=== PATIENT | female | born 1930 | race Caucasian/White ===

== ENCOUNTER 2019-02-08 11:12 | Emergency (ER) | payer MEDICARE, BC ==
[~2019-02-08] VITALS: Ht 162.6 cm; Wt 104.3 kg
[~2019-02-08 11:12] MED LIST: ADVAIR HFA115 MCG/21 INH; AMIODARONE HCL100 MG PO; APAP500 PO; ASPIRIN325 PO; ASPIRIN81 M2 PO; ATIVAN1 MG PO; ATORVASTATIN CA10 MG PO; DOXYCYCLINE 10100 M1 PO; DUONEB 2.5-0.5 M3 ML PO; ELMIRON 100 MG100 M1 PO; FENOFIBRATE160 MG PO; GABAPENTIN100 MG PO; HYDROCHLOROTHIA25 M2 PO; KEFLEX500 MG PO; LASIX 20 MG TAB20 MG PO; LEVOTHROID112 MCG PO; LEVOTHYROXIN0.112 M1 PO; LEVOTHYROXINE0.2 M1 PO; LIPITOR10 MG PO; MEGESTROL40 MG/1 M1 GT; NITROGLYCERIN0.4 MG PO; NORVASC5 MG PO; OMEPRAZOLE 20 M20 MG PO; PACERONE 200 M200 M1 PO; PREDNISONE 10 M10 MG PO; PREDNISONE50 MG PO; PULMICORT0.5 MG/22 INH; SINGULAIR 10 MG10 M1 PO; TOPROL XL25 MG PO; URELLE PO; URELLE TABLET1 TAB PO; VENTOLIN HFA 1818 GM INH; ZANTAC 150MG T150 MG PO
[2019-02-08] MEDS ORDERED: LASIX 20 MG TAB20 MG PO (11:34)
[2019-02-08] MEDS ORDERED: AZELASTINE137 MCG/0. NASAL (11:35)
[2019-02-08] MEDS ORDERED: PACERONE 200 M200 M1 PO (11:35)
[2019-02-08] MEDS ORDERED: HYDRALAZINE 2525 MG PO (11:35)
[2019-02-08] MEDS ORDERED: LINZESS290 MCG PO (11:35)
[2019-02-08] MEDS ORDERED: XARELTO15 MG PO (11:36)
[2019-02-08 12:40] VITALS: BP 122/50
== END 2019-02-08 12:41 | disposition home or self-care (01) ==
LOC: M.ERS 11:12
DX: S81.812A Laceration without foreign body, left lower leg, initial encounter (principal); I10 Essential (primary) hypertension; E11.9 Type 2 diabetes mellitus without complications; I48.91 Unspecified atrial fibrillation; J44.9 Chronic obstructive pulmonary disease, unspecified; Z85.41 Personal history of malignant neoplasm of cervix uteri; Z90.49 Acquired absence of other specified parts of digestive tract; Z90.710 Acquired absence of both cervix and uterus; Z88.2 Allergy status to sulfonamides; Z88.6 Allergy status to analgesic agent; X58.XXXA Exposure to other specified factors, initial encounter; Y93.89 Activity, other specified; Y92.89 Other specified places as the place of occurrence of the external cause; Y99.8 Other external cause status

== ENCOUNTER → 2019-02-24 | Outpatient (CLI) | payer MEDICARE, BC ==
[~2019-02-24] MED LIST changes: +ADVAIR HFA 230M12 GM INH; +AZELASTINE137 MCG/0. NASAL; +HYDRALAZINE 2525 MG PO; +LINZESS290 MCG PO; +XARELTO15 MG PO
[2019-02-24 11:25] VITALS: BP 135/52
--- NOTE | 2019-02-24 13:27 | NUR ---
Pt arrived at 1055 via w/c with husbands assistance. Pt ambulated to recliner. Pt had orders from Dr office different then the orders faxed to us. Called 's office and spoke with Nancy Narvaez's nurse Amanda and she clarified the 2 sets of orders. One is for iron infusions x3 and the other was for after infusion is completed for labs and epo shot. Explained this to patient and pt does have follow up apt with us on 03/10/19. IV started at 1132 in right forarm. Pt has limb alert for left side d/t lymph node removal. Infusion started at 1125 and completed at 1320. Pt tolerated well. Did have box lunch and wheeled to bathroom x3 during treatment. IV removed at 1322 and pressure held d/t pt being on blood thinner. Pt was wheeled out at 1327 for home with .
== END ==
LOC: M.INFUS 10:41
DX: D50.9 Iron deficiency anemia, unspecified (principal); N18.9 Chronic kidney disease, unspecified; D63.1 Anemia in chronic kidney disease

== ENCOUNTER → 2019-02-27 | Outpatient (CLI) | payer MEDICARE, BC ==
[2019-02-27 10:35] VITALS: BP 110/60
[2019-02-27 12:15] VITALS: BP 120/48
== END ==
LOC: M.INFUS 04:30
DX: D50.9 Iron deficiency anemia, unspecified (principal); N18.9 Chronic kidney disease, unspecified; D63.1 Anemia in chronic kidney disease

== ENCOUNTER 2019-11-10 16:50 | Inpatient (IN) | payer MEDICARE, BC ==
[~2019-11-10] VITALS: Ht 162.6 cm; Wt 105.2 kg
[2019-11-10 16:57] VITALS: BP 135/51
[2019-11-10 18:13] LABS: APTT 26.3 Seconds (25.0-31.3); INR 1.1; PROTIME 11.2 Seconds (9.20-11.50)
[2019-11-10 19:09] LABS: HEMATOCRIT 26.9 % (37.0-47.0); MCH 31.2 pg (26.0-34.0); MCHC 33.3 g/dL (28.0-37.0); MCV 93.6 fL (80.0-100.0); MPV 8.4 fl. (7.2-11.1); NUCLEATED RBCS 0 /100WBC; PLATELET COUNT* 211 thou/uL (150-400); RBC 2.88 mil/uL (4.20-5.00); RDW-CV 15.3 % (10.5-14.5); WBC 9.2 thou/uL (4.0-11.0)
[2019-11-10 19:12] LABS: CALCIUM 8.9 mg/dL (8.5-10.1); CREATININE 1.7 mg/dL (0.6-1.3); POTASSIUM 4.4 mmol/L (3.5-5.1)
[2019-11-10 19:26] LABS: ABSOLUTE LYMPHOCYTES 2.1 thou/uL (0.8-5.3); ABSOLUTE MONOCYTES 0.5 thou/uL (0.0-1.2); ABSOLUTE NEUTROPHILS 4.6 thou/uL (1.6-8.1); PLATELET ESTIMATE ADEQUATE
[2019-11-10 19:27] LABS: ALBUMIN 3.3 g/dL (3.4-5.0); TOTAL BILIRUBIN 0.4 mg/dL (<0.1-1.0); TOTAL PROTEIN 7.4 g/dL (6.4-8.2)
[2019-11-10 21:14] VITALS: BP 157/72
[2019-11-10 21:15] VITALS: BP 130/44
[2019-11-10 22:34] VITALS: BP 123/48
[2019-11-11] VITALS (7 sets, daily range): BP systolic 112–150; BP diastolic 45–65
--- NOTE | 2019-11-11 06:53 | NUR ---
TELE OVERFLOW FROM ED. ADMISSION AND ORDERS DONE. RN ESTABLISHED CARE FROM HIREN JOHNS AT 0000. CONSULT TO ORTHO SURGERY. PT HAS DNI STATUS WAITING PHYSICIAN CHANGE. CONTINUE TO MONITOR
--- NOTE | 2019-11-11 10:15 | NUR ---
INT ROUNDS: MET WITH PT, SHE LIVES WITH SPOUSE. BOTH ARE FAIRLY INDEPENDENT. SHARE HOUSEHOLD DUTIES. PT IS INDEPENDENT WITH ADLS. USES BATH BENCH, WALKER AND O2 AT NOC/2L. PT'S SON AND DTR ARE DPOA. PT HASN'T HAD HH AND NOT INTERESTED IN IT AT THIS TIME. PLANS TO RETURN HOME AT OR. WAS MOST INTERESTED IN FINDING A TV SHOW ON HER TV. WILL FOLLOW
--- NOTE | 2019-11-11 15:27 | 2DMMODE ---
[place] [address] 2 D/M-MODE ECHOCARDIOGRAM Name: ADIS EMMANUEL I Room: [address] IN [facility]#: [id number] Admission: 11/10/19 Attend Phys: Best Gilmore, Discharge: Date of : 34 Date of Service: 11/11/19 1526 Report #: [id number] THIS REPORT FOR: //name// APPROVED REPORT Study performed: 11/11/2019 10:43:01 EXAM: Comprehensive 2D, Doppler, and color-flow Echocardiogram Patient Location: In-Patient Room #: [facility] Status: routine BSA: 2.05 HR: 68 bpm BP: 135/50 mmHg Rhythm: NSR Other Information Study Quality: Good Indications Dyspnea 2D Dimensions IVSd: 14.90 (7-11mm) LVOT Diam: 21.26 (18-24mm) LVDd: 55.14 mm PWd: 13.27 (7-11mm) Ascending Ao: 32.50 (22-36mm) LVDs: 34.49 (25-40mm) Aortic Root: 31.87 mm Volumes Left Atrial Volume (Systole) LA ESV Index: 39.60 mL/m2 Aortic Valve AoV Peak Ángel.: 2.70 m/s AO Peak Gr.: 29.05 mmHg LVOT Max P.36 mmHg AO Mean Gr.: 18.19 mmHg LVOT Mean P.84 mmHg LVOT Max V: 0.92 m/s AO V2 VTI: 61.15 cm LVOT Mean V: 0.64 m/s JIMBO (VTI): 1.25 cm2 LVOT V1 VTI: 21.57 cm Mitral Valve MV Decel. Time: 193.99 ms MV PHT: 56.26 ms MVA (PHT): 3.91 [place]2 [place] [address] 2 D/M-MODE ECHOCARDIOGRAM Name: ADIS EMMANUEL I Room: [address] IN [facility]#: [id number] Admission: 11/10/19 Attend Phys: Best Gilmore, Discharge: Date of : 34 Date of Service: 11/11/19 1526 Report #: [id number] TDI Medial E' Ángel.: 0.09 m/s Lateral E' Ángel.: 0.11 m/s Pulmonary Valve PV Peak Ángel.: 1.01 m/s PV Peak Gr.: 4.12 mmHg Tricuspid Valve RAP Estimate: 5.00 mmHg TR Peak Gr.: 45.85 mmHg RVSP: 50.00 mmHg PA Pressure: 50.00 mmHg Left Ventricle The left ventricle is normal size. There is normal LV segmental wall motion. Mild concentric left ventricular hypertrophy. Left ventricular systolic function is normal. LVEF is 55-60%. This study is not technically sufficient to allow evaluation of the LV diastolic function due to atrial fibrillation. Right Ventricle The right ventricle is normal size. The right ventricular systolic function is normal. Atria Left atrium is mildly dilated. The right atrium size is normal. Aortic Valve Moderate aortic valve sclerosis. No aortic regurgitation is present. Moderate aortic stenosis. Mitral Valve The mitral valve is normal in structure. Trace mitral regurgitation. No evidence of mitral valve stenosis. Tricuspid Valve The tricuspid valve is normal in structure. Trace tricuspid regurgitation. Moderate pulmonary hypertension. The RVSP is 50-55 mmHg. Pulmonic Valve The pulmonary valve is normal in structure. There is no pulmonic valvular regurgitation[place] [address] 2 D/M-MODE ECHOCARDIOGRAM Name: HUMPHREYDANIEL THOMPSONJAKE Dill Room: [address]#: [id number] Admission: 11/10/19 Attend Phys: Best Gilmore, Discharge: Date of : 34 Date of Service: 11/11/19 1526 Report #: [id number] The aortic root is normal in size. IVC is normal in size and collapses >50% with inspiration. Pericardium There is no pericardial effusion. <Conclusion> The left ventricle is normal size. Mild concentric left ventricular hypertrophy. Left ventricular systolic function is normal. LVEF is 55-60%. Left atrium is mildly dilated. Moderate aortic valve sclerosis. Moderate aortic stenosis. Trace mitral regurgitation. Trace tricuspid regurgitation. Moderate pulmonary hypertension. The RVSP is 50-55 mmHg. IVC is normal in size and collapses >50% with inspiration. <ELECTRONICALLY SIGNED> By: Gonzalez Jarvis MD, FACC 11/11/19 1526 1526 1526 Gonzalez Jarvis MD, FACC /INF
--- NOTE | 2019-11-11 16:06 | EKG ---
[place] [address] ELECTROCARDIOGRAM REPORT Name: ADIS EMMANUEL I Room: [address] ADM IN M.R.#: [id number] Admission: 11/10/19 Attend Phys: Best Gilmore MD Discharge: Date of : 34 Report #: [id number] THIS REPORT FOR: //name// [facility] ED Test Date: 2019-11-10 Test Time: 16:53:03 Pat Name: ADIS EMMANUEL Department: Room: [facility] Gender: F Revenue Stamp Clerk: MS : 1930 Requested By: Inez Wahl Order Number: [id number] MD: Mitch Gray Measurements Intervals [place] Rate: 75 P: MA: QRS: -29 QRSD: 129 T: 143 QT: 427 QTc: 477 Interpretive Statements Atrial fibrillation LVH with IVCD and secondary repol abnrm Borderline prolonged QT interval Baseline wander in lead(s) II,III,aVF Compared to ECG 06/29/2016 08:32:03 Intraventricular conduction delay persists Left ventricular hypertrophy now present Early repolarization now present Sinus rhythm no longer present First degree AV block no longer present Left bundle-branch block no longer present Electronically Signed On 11-11-2019 16:05:47 INFORMATION TECHNOLOGY ASSISTANT by Mitch Gray [email or web address] <ELECTRONICALLY SIGNED> By: Mitch Gray MD, [facility] 11/11/19 1605 52 165 Mitch Gray MD, [facility] /EPI
--- NOTE | 2019-11-11 17:41 | NUR ---
PATIENT PROGRESSING WELL TOWARDS GOALS THIS SHIFT. CONTINUES TO USE COMMODE FREQUENTLY DUE TO LASIX ADMINISTRATION. VITALS REMAIN WITHIN NORMAL LIMITS. GREAT APPETITE, NO PAIN, NAUSEA OR SHORTNESS OF AIR. STILL CONTINUES TO APPEAR LABORED WITH EXERTION BUT SATS REMAIN ABOVE 90%. BED IN LOWEST POSITION, CALL LIGHT IN REACH. CARDIAC MONTIOR IN PLACE.
[2019-11-12] VITALS: BP 123/51
[2019-11-12 03:05] LABS: CALCIUM 8.7 mg/dL (8.5-10.1); CREATININE 1.7 mg/dL (0.6-1.3); POTASSIUM 4.4 mmol/L (3.5-5.1)
[2019-11-12 04:50] VITALS: BP 160/49
--- NOTE | 2019-11-12 05:34 | NUR ---
PT. PROGRESSING TOWARDS GOALS. UP TO COMMODE STAND BY ASSIST THROUGHOUT SHIFT. 3.5L O2 ON WHILE SLEEPING. REMAINS AFIB, HEART RATE CONTROLLED. PT. HYPERTENSIVE ON LAST BP CHECK, HYDRALIZINE GIVEN. PT. WILL POSSIBLY DISCHARGE TO HOME TODAY. 700 CC FLUID INTAKE THIS SHIFT. PT. SLEPT WELL THROUGHOUT SHIFT. CALL LIGHT IN REACH, WILL CONTINUE TO MONITOR.
[2019-11-12 07:50] VITALS: BP 109/54
[2019-11-12 07:52] VITALS: BP 117/45
[2019-11-12 10:38] VITALS: BP 113/51
[2019-11-12 11:31] VITALS: BP 113/51
== END 2019-11-12 12:00 | disposition home or self-care (01) | DRG 562 ==
LOC: M.ERS 16:50 → M.ICU 19:47 → M.TBA-ER 19:47 → M.ICU 20:40
PROVIDERS: Family Medicine; Nurse Practitioner Family; ADMIT Internal Medicine
PROC: 2W3BX1Z Immobilization of Left Upper Arm using Splint (ICD-10-PCS; principal; 2019-11-10)
DX: S43.032A Inferior subluxation of left humerus, initial encounter (principal); I50.33 Acute on chronic diastolic (congestive) heart failure; I13.0 Hypertensive heart and chronic kidney disease with heart failure and stage 1 through stage 4 chronic kidney disease, or unspecified chronic kidney disease; D68.59 Other primary thrombophilia; I48.20 Chronic atrial fibrillation, unspecified; N18.3 Chronic kidney disease, stage 3 (moderate); I25.10 Atherosclerotic heart disease of native coronary artery without angina pectoris; I25.2 Old myocardial infarction; J44.9 Chronic obstructive pulmonary disease, unspecified; E11.22 Type 2 diabetes mellitus with diabetic chronic kidney disease; I27.20 Pulmonary hypertension, unspecified; E78.5 Hyperlipidemia, unspecified; E03.9 Hypothyroidism, unspecified; K58.9 Irritable bowel syndrome, unspecified; F32.9 Major depressive disorder, single episode, unspecified; F41.9 Anxiety disorder, unspecified; M25.812 Other specified joint disorders, left shoulder; M19.012 Primary osteoarthritis, left shoulder; E11.40 Type 2 diabetes mellitus with diabetic neuropathy, unspecified; Z98.61 Coronary angioplasty status; Z88.6 Allergy status to analgesic agent; Z88.1 Allergy status to other antibiotic agents; Z85.41 Personal history of malignant neoplasm of cervix uteri; Z90.710 Acquired absence of both cervix and uterus; Z85.820 Personal history of malignant melanoma of skin; Z82.49 Family history of ischemic heart disease and other diseases of the circulatory system; Z87.891 Personal history of nicotine dependence; Z99.81 Dependence on supplemental oxygen; Z79.899 Other long term (current) drug therapy; X58.XXXA Exposure to other specified factors, initial encounter; Y93.89 Activity, other specified; Y92.89 Other specified places as the place of occurrence of the external cause; Y99.8 Other external cause status

== ENCOUNTER 2020-05-11 15:03 | Inpatient (IN) | payer MEDICARE, BC ==
[~2020-05-11] VITALS: Ht 152.4 cm; Wt 99.3 kg
[2020-05-11 15:13] VITALS: BP 133/58
[2020-05-11 15:42] LABS: HEMATOCRIT 23.4 % (37.0-47.0); HEMOGLOBIN 7.9 gm/dL (12.0-15.0); MCH 30.3 pg (26.0-34.0); MCHC 33.8 g/dL (28.0-37.0); MCV 89.6 fL (80.0-100.0); MPV 7.7 fl. (7.2-11.1); NUCLEATED RBCS 0 /100WBC; PLATELET COUNT* 230 thou/uL (150-400); RBC 2.61 mil/uL (4.20-5.00); RDW-CV 16.5 % (10.5-14.5); WBC 9.4 thou/uL (4.0-11.0)
[2020-05-11 15:49] LABS: BE 1.6 mmol/L (-2 to +3); PCO2 42.7 mmHg (35.0-45.0); pH 7.409 (7.340-7.450)
[2020-05-11 15:51] LABS: PO2 141.1 mmHg (75.0-100.0)
[2020-05-11 15:52] LABS: INR 1.1; PROTIME 11.6 Seconds (9.20-11.50)
[2020-05-11 15:53] LABS: CALCIUM 8.2 mg/dL (8.5-10.1); CREATININE 2.1 mg/dL (0.6-1.3); POTASSIUM 4.3 mmol/L (3.5-5.1)
[2020-05-11 16:04] LABS: TOTAL BILIRUBIN 0.4 mg/dL (<0.1-1.0); TOTAL PROTEIN 7.5 g/dL (6.4-8.2)
[2020-05-11 16:09] LABS: ABSOLUTE EOSINOPHILS 2.2 thou/uL (0.0-0.7); ABSOLUTE LYMPHOCYTES 1.9 thou/uL (0.8-5.3); ABSOLUTE MONOCYTES 0.8 thou/uL (0.0-1.2); ABSOLUTE NEUTROPHILS 4.6 thou/uL (1.6-8.1); ANISOCYTOSIS 1+; PLATELET ESTIMATE ADEQUATE
[2020-05-11 21:14] VITALS: BP 130/74
[2020-05-12] VITALS: BP 126/46
[2020-05-12] MEDS ORDERED: LIPITOR 20 MG T20 M1 PO (02:02)
[2020-05-12] MEDS ORDERED: METOPROLOL SUCC25 M1 PO (02:06)
[2020-05-12] MEDS ORDERED: TOPROL XL25 MG PO (02:16)
[2020-05-12 04:00] VITALS: BP 127/42
[2020-05-12 08:00] VITALS: BP 145/62
--- NOTE | 2020-05-12 09:07 | EKG ---
[place] [address] ELECTROCARDIOGRAM REPORT Name: ADIS EMMANUEL I Room: [address] ADM IN M.R.#: [id number] Admission: 05/11/20 Attend Phys: Betty funez Sa Discharge: Date of : 34 Date of Service: 05/11/20 1540 Report #: [id number] THIS REPORT FOR: //name// [facility] ED Test Date: 2020-05-11 Test Time: 15:40:41 Pat Name: ADIS EMMANUEL Department: Room: [facility] Gender: F Communications Maintainer: TARA : 1930 Requested By: Cooper Peterson Order Number: [id number] MD: Mc Savage Measurements Intervals [place] Rate: 71 P: [place]: QRS: -43 QRSD: 136 T: 113 QT: 495 QTc: 538 Interpretive Statements Atrial fibrillation Ventricular premature complex nonspecific intraventricular conduction defect Baseline wander in lead(s) V2 Compared to ECG 11/10/2019 16:53:03 Ventricular premature complex(es) now present Left ventricular hypertrophy no longer present Electronically Signed On 05-12-2020 9:06:45 CDT by Mc Savage [email or web address] <ELECTRONICALLY SIGNED> By: Mc Savage MD, FAC 05/12/20 0906 1540 1540 Mc Savage MD, [facility] /EPI
[2020-05-12 12:31] VITALS: BP 105/75
[2020-05-12 14:07] LABS: % SATURATION 14 % (20-39); IRON 38 ug/dL (50-175)
[2020-05-12 19:30] VITALS: BP 93/54
[2020-05-13] VITALS: BP 126/46
[2020-05-13 04:45] LABS: HEMATOCRIT 22.7 % (37.0-47.0); HEMOGLOBIN 7.6 gm/dL (12.0-15.0)
[2020-05-13 04:53] LABS: CALCIUM 8.5 mg/dL (8.5-10.1); CREATININE 1.8 mg/dL (0.6-1.3); POTASSIUM 3.9 mmol/L (3.5-5.1)
[2020-05-13 08:00] VITALS: BP 119/36
[2020-05-13 12:00] VITALS: BP 106/46
--- NOTE | 2020-05-13 14:31 | NUR ---
PT IS SLIGHTLY AGITATED FROM O/N EVENTS. PT REASSURED THAT THIS WAS NOT NORMAL BEHAVIOR. PT BP HAS BEEN DECREASED T/O SHIFT,METOPROLOL AND HYDRALAZINE HELD. PT HAS REPORTED SOME DIZZINESS WITH POSITIONAL CHANGE. PT HAS APPEARED VERY SOA,LABORED BREATHING. PT DOES STATE THAT THEY WILL CALL FOR ASSIST IF THEY FEEL THEY NEED HELP. PT DID REFUSE, IRON,LASIX AND PHYSICAL THERAPY. WCTM CLOSELY.
[2020-05-13] MEDS ORDERED: AZITHROMYCIN 2250 MG PO (15:19)
[2020-05-13] MEDS ORDERED: SLOW FE142 MG PO (15:20)
--- NOTE | 2020-05-13 16:58 | CON ---
[address] [address] CONSULTATION Name: ADIS EMMANUEL I Room: [address] IN M.R.#: [id number] Admission: 05/11/20 Attend Phys: Betty Mcduffie Discharge: Date of : 34 Report #: [id number] THIS REPORT FOR: //name// cc: Kenia Alarcon Maggie M. DO THIS REPORT FOR: //name// CC: Betty Chairez DO DATE OF SERVICE: 05/12/2020 CARDIOLOGY CONSULTATION HISTORY OF PRESENT ILLNESS: The patient is an 89-year-old white female who I was asked to see in the hospital today because of shortness of breath. The patient has an extensive past medical history. She has had multiple hospitalizations here at [place]. She actually saw Dr. Villalobos back in 2007 with shortness of breath and was found to be in atrial flutter. She was placed on sotalol. She has been anticoagulated with warfarin in the past. She converted to sinus rhythm. The patient had previous balloon angioplasty at [facility] almost 30 years ago. She has been on the sotalol for years. She had recurrent atrial fibrillation and converted to sinus rhythm in 2008. Her last hospitalization here at [place] is 10/2019 with shortness of breath, found to be secondary to COPD. The patient is not very active because of her large size. She is 5 feet 4 inches and weighs 220 pounds. She uses a walker. She came to the Emergency Room yesterday, complaining of being short of breath and coughing. She denied any edema, chest tightness, palpitation, syncope. No one at home had pneumonia. She is admitted for further evaluation and treatment. PAST MEDICAL HISTORY: She has had hysterectomy for uterine cancer. She has a history of hypertension. There is no history of diabetes. CURRENT MEDICATIONS: Consist of Lasix, hydralazine, Lipitor, Synthroid, Xarelto, Pulmicort, and metoprolol. ALLERGIES: SHE HAS AN ALLERGY TO MORPHINE. FAMILY HISTORY: Positive for heart disease. SOCIAL HISTORY: She is . She and her live in [place]. Quit smoking years ago. No alcohol abuse. REVIEW OF SYSTEMS: She has had no history of stroke. [place] [address] CONSULTATION Name: ADIS EMMANUEL I Room: [address]#: [id number] Admission: 05/11/20 Attend Phys: Betty Mcduffie Discharge: Date of : 34 Report #: [id number] history of liver disease, kidney disease. 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 No psychiatric illness. No chronic skin condition. PHYSICAL EXAMINATION: GENERAL: Reveals obese elderly female, lying in bed. She appeared in no distress. VITAL SIGNS: She had a blood pressure of 140/60, pulse is 80, she is afebrile. HEENT: She is anicteric. Conjunctivae pink. Mucous membranes moist. NECK: Veins difficult to assess due to obesity. No carotid bruits. CHEST: Revealed crackles in both lung unger. CARDIOVASCULAR: Regular rate and rhythm, grade 3 systolic ejection murmur. ABDOMEN: Obese. EXTREMITIES: Had no pitting edema. Posterior tibial pulse 1+. SKIN: Cool and dry. NEUROLOGIC: Nonfocal. DIAGNOSTIC DATA: Her ECG on admission showed sinus rhythm, first-degree AV block, frequent PVCs, left axis deviation. Her last echocardiogram was done in 10/2019 that showed ejection fraction 60%, left ventricular hypertrophy, evidence of moderate aortic stenosis with a peak gradient across the aortic valve of 30 mmHg. She was noted to have moderate pulmonary hypertension. Her chest x-ray in the Emergency Room yesterday showed chronic interstitial lung findings. LABORATORY WORK: Yesterday, sodium 139, BUN 47, creatinine 2.1. Her liver function studies were normal. BNP 6186. Her white blood cell count 9.4, hemoglobin 7.9. IMPRESSION AND RECOMMENDATIONS: 1. Shortness of breath. Suspect secondary to anemia. The patient does have chronic obstructive pulmonary disease. 2. Mild aortic stenosis. 3. History of atrial fibrillation. If the patient remains in sinus rhythm, I would consider discontinuing Xarelto because of her severe anemia. 4. Hypertension. The patient is on a beta-haroon and hydralazine. 5. History of melanoma. 6. Bronchitis. 7. Obesity. 8. Chronic obstructive pulmonary disease. <ELECTRONICALLY SIGNED> By: Mc Savage MD, [facility] 05/13/20 1658 1226 1531David Milton Savage MD, FACC /nt
--- NOTE | 2020-05-13 16:59 | NUR ---
PT.TO DISCHARGE TODAY. SHE LIVES WITH . HAS HOME O2,WALKER,BATH BENCH. PT.HAS NO HX OF HH OR SNF AND DOES NOT WANT HH AT THIS TIME. IS INDEPENDENT AT HOME AND HELPS HER NEEDED.
[2020-05-13] MEDS ORDERED: AZITHROMYCIN500 MG PO (17:49)
== END 2020-05-13 17:31 | disposition home or self-care (01) | DRG 291 ==
LOC: M.ERS 15:03 → M.2W 17:11 → M.TBA-ER 17:11 → M.2W 21:23
PROVIDERS: Emergency Medicine; Internal Medicine Cardiovascular Disease; ADMIT Family Medicine; ATTEND Family Medicine
DX: I13.0 Hypertensive heart and chronic kidney disease with heart failure and stage 1 through stage 4 chronic kidney disease, or unspecified chronic kidney disease (principal); I50.33 Acute on chronic diastolic (congestive) heart failure; J15.9 Unspecified bacterial pneumonia; J44.0 Chronic obstructive pulmonary disease with (acute) lower respiratory infection; N17.9 Acute kidney failure, unspecified; I48.20 Chronic atrial fibrillation, unspecified; D68.59 Other primary thrombophilia; Z68.41 Body mass index [BMI] 40.0-44.9, adult; N18.3 Chronic kidney disease, stage 3 (moderate); G62.9 Polyneuropathy, unspecified; I35.0 Nonrheumatic aortic (valve) stenosis; E66.9 Obesity, unspecified; F32.9 Major depressive disorder, single episode, unspecified; F41.9 Anxiety disorder, unspecified; E03.9 Hypothyroidism, unspecified; I27.20 Pulmonary hypertension, unspecified; D50.9 Iron deficiency anemia, unspecified; Z20.828 Contact with and (suspected) exposure to other viral communicable diseases; K58.9 Irritable bowel syndrome, unspecified; Z85.41 Personal history of malignant neoplasm of cervix uteri; I25.2 Old myocardial infarction; Z88.6 Allergy status to analgesic agent; Z88.2 Allergy status to sulfonamides; Z85.42 Personal history of malignant neoplasm of other parts of uterus; Z82.49 Family history of ischemic heart disease and other diseases of the circulatory system; Z87.891 Personal history of nicotine dependence; Z99.81 Dependence on supplemental oxygen

== ENCOUNTER → 2020-12-02 | Outpatient (CLI) | payer MEDICARE, BC ==
[~2020-12-02] MED LIST changes: +AZITHROMYCIN 2250 MG PO; +AZITHROMYCIN500 MG PO; +LIPITOR 20 MG T20 M1 PO; +METOPROLOL SUCC25 M1 PO; +SLOW FE142 MG PO
== END ==
LOC: M.RAD 10:57
PROVIDERS: ATTEND Family Medicine
DX: N64.89 Other specified disorders of breast (principal)

== ENCOUNTER 2021-01-06 14:16 | Inpatient (IN) | payer MEDICARE, BC ==
[~2021-01-06] VITALS: Ht 162.6 cm; Wt 106.2 kg
[2021-01-06 14:23] VITALS: BP 143/61
[2021-01-06 14:54] LABS: HEMATOCRIT 23.7 % (37.0-47.0); HEMOGLOBIN 7.7 gm/dL (12.0-15.0); MCH 30.1 pg (26.0-34.0); MCHC 32.4 g/dL (28.0-37.0); MPV 7.6 fl. (7.2-11.1); NUCLEATED RBCS 0 /100WBC; PLATELET COUNT* 237 thou/uL (150-400); RBC 2.55 mil/uL (4.20-5.00); RDW-CV 15.4 % (10.5-14.5)
[2021-01-06 15:07] LABS: APTT 25.4 Seconds (25.0-31.3); INR 1.1; PROTIME 11.2 Seconds (9.20-11.50)
[2021-01-06 15:34] LABS: URINE BILIRUBIN NEGATIVE (Negative); URINE BLOOD NEGATIVE (Negative); URINE COLOR YELLOW; URINE GLUCOSE-RANDOM NEGATIVE (Negative); URINE KETONES NEGATIVE (Negative); URINE PROTEIN NEGATIVE (Negative); URINE UROBILINOGEN 0.2 E.U./dl (0.2-1.0)
[2021-01-06 15:37] LABS: URINE LEUKOCYTES-REFLEX 2+ (Negative); URINE NITRITE-REFLEX POSITIVE (Negative)
[2021-01-06 15:38] LABS: URINE CLARITY SL CLOUDY
[2021-01-06 15:41] LABS: ABSOLUTE EOSINOPHILS 1.6 thou/uL (0.0-0.7); ABSOLUTE LYMPHOCYTES 2.1 thou/uL (0.8-5.3); ABSOLUTE MONOCYTES 0.4 thou/uL (0.0-1.2); ANISOCYTOSIS 1+; HYPOCHROMASIA 1+; PLATELET ESTIMATE ADEQUATE; POIKILOCYTOSIS 1+
[2021-01-06 15:42] LABS: TOXIC GRANULATION 1+
[2021-01-06 15:44] LABS: POTASSIUM 4.3 mmol/L (3.5-5.1); TOTAL BILIRUBIN 0.4 mg/dL (<0.1-1.0); TOTAL PROTEIN 7.9 g/dL (6.4-8.2)
[2021-01-06 15:45] LABS: BACTERIA-REFLEX >30 Many /HPF (None Seen); SQUAMOUS 0-3 Few /LPF (0-3); URINE RBC 3-10 Few /HPF (0-2); URINE WBC-REFLEX >25 Many /HPF (0-5); WBC CLUMPS Moderate (None Seen)
[2021-01-06 15:46] LABS: CASTS None Seen /LPF (None Seen); CRYSTALS None Seen /LPF (None Seen); MUCUS 0-3 Light strn/LPF (None Seen)
[2021-01-06 15:54] LABS: ALBUMIN 3.1 g/dL (3.4-5.0); CALCIUM 9.3 mg/dL (8.5-10.1); CREATININE 2.3 mg/dL (0.6-1.3)
--- NOTE | 2021-01-06 16:17 | EKG ---
[place] [address] ELECTROCARDIOGRAM REPORT Name: ADIS EMMANUEL I Room: [facility]#: [id number] Admission: 01/06/21 Attend Phys: Discharge: Date of : 34 Date of Service: 01/06/21 1423 Report #: [id number] THIS REPORT FOR: //name// [facility] ED Test Date: 2021-01-06 Test Time: 14:23:39 Pat Name: ADIS EMMANUEL Department: Room: Gender: Assistant Produce Manager: : 1930 Requested By: Domenic Caro Order Number: [id number] MD: Mitch Gray Measurements Intervals [place] Rate: 65 P: [place]: QRS: -46 QRSD: 135 T: 104 QT: 437 QTc: 455 Interpretive Statements Pacemaker spikes or artifacts Atrial fibrillation Ventricular premature complex Nonspecific interventricular conduction labeled left axis deviation Baseline wander in lead(s) V3 Compared to ECG 05/11/2020 15:40:41 IVCD persists Electronically Signed On 01-06-2021 16:17:45 OUTDOOR RECREATION SPECIALIST by Mitch Gray [email or web address] <ELECTRONICALLY SIGNED> By: Mitch Gray MD, [facility] 01/06/21 1617 1423 1423 Mitch Gray MD, [facility] /EPI
[2021-01-06 21:23] VITALS: BP 115/43
[2021-01-07] VITALS: BP 144/45
[2021-01-07 04:00] VITALS: BP 160/72
[2021-01-07 08:07] VITALS: BP 122/46
[2021-01-07 09:19] LABS: POTASSIUM 3.9 mmol/L (3.5-5.1)
--- NOTE | 2021-01-07 09:47 | NUR ---
CM SPOKE TO THE PT TO DISCUSS CM ASSESSMENT. PT A&O, AND NORMALLY INDEPENDENT WITH ADL'S AND DRIVES. PT RESIDES AT HOME WITH SPOUSE. PT USES A WALKER FOR MOBILITY. PT ALSO USES 3L O2 AT BASELINE. PT HAS PAST HX OF HH. PT HAS 0 HX OF SNF. CM WILL REMEAIN AVAILABLE TO ASSIST AND FOLLOW FOR D/C PLANNING.
[2021-01-07 12:14] VITALS: BP 143/56
--- NOTE | 2021-01-07 12:52 | 2DMMODE ---
[place] [address] 2 D/M-MODE ECHOCARDIOGRAM Name: HUMPHREYDONNAADIS I Room: [address] IN .#: [id number] Admission: 01/06/21 Attend Phys: Jose A Miramontes Discharge: Date of : 34 Date of Service: 01/07/21 1252 Report #: [id number] THIS REPORT FOR: cc: Kenia Alarcon Maggie M. DO Holkins, John M. MD [facility] ~ APPROVED REPORT Study performed: 01/07/2021 10:50:20 EXAM: Comprehensive 2D, Doppler, and color-flow Echocardiogram Patient Location: In-Patient Room #: [facility] Status: routine BSA: 2.09 HR: 58 bpm BP: 122/46 mmHg Rhythm: Atrial Fibrillation Other Information Study Quality: Adequate Indications Atrial Fibrillation 2D Dimensions IVSd: 13.44 (7-11mm) LVOT Diam: 20.82 (18-24mm) LVDd: 46.13 mm PWd: 12.50 (7-11mm) Ascending Ao: 31.31 (22-36mm) LVDs: 25.48 (25-40mm) Aortic Root: 31.54 mm Volumes Left Atrial Volume (Systole) LA ESV Index: 30.80 mL/m2 Aortic Valve AoV Peak Ángel.: 3.06 m/s AO Peak Gr.: 37.35 mmHg LVOT Max P.57 mmHg AO Mean Gr.: 23.15 mmHg LVOT Mean P.84 mmHg LVOT Max V: 0.95 m/s AO V2 VTI: 74.12 cm LVOT Mean V: 0.63 m/s JIMBO (VTI): 1.03 cm2 LVOT V1 VTI: 22.52 [place] [address] 2 D/M-MODE ECHOCARDIOGRAM Name: ADIS EMMANUEL I Room: [address] IN [facility].#: [id number] Admission: 01/06/21 Attend Phys: Jose A Miramontes Discharge: Date of : 34 Date of Service: 01/07/21 1252 Report #: [id number] Mitral Valve MV Mean Gr.: 3.04 mmHg MV Decel. Time: 196.28 ms MV PHT: 56.92 ms MVA (PHT): 3.86 cm2 TDI Medial E' Ángel.: 0.10 m/s Lateral E' Ángel.: 0.11 m/s Pulmonary Valve PV Peak Ángel.: 1.20 m/s PV Peak Gr.: 5.77 mmHg Tricuspid Valve RAP Estimate: 5.00 mmHg TR Peak Gr.: 47.74 mmHg RVSP: 52.00 mmHg PA Pressure: 52.00 mmHg Left Ventricle The left ventricle is normal size. There is normal LV segmental wall motion. There is normal left ventricular wall thickness. Left ventricular systolic function is normal. The left ventricular ejection fraction is within the normal range. LVEF is 50-55%. This study is not technically sufficient to allow evaluation of the LV diastolic function due to atrial fibrillation. Right Ventricle The right ventricle is normal size. The right ventricular systolic function is normal. Atria Left atrium is mildly dilated. The right atrium size is normal. Aortic Valve Moderate aortic valve sclerosis. No aortic regurgitation is present. Moderate aortic stenosis. Mitral Valve Moderate mitral annular calcification. Trace mitral regurgitation. No evidence of mitral valve stenosis. Tricuspid Valve The tricuspid valve is normal in structure. Mild tricuspid regurgitation. [place] [address] 2 D/M-MODE ECHOCARDIOGRAM Name: HUMPHREYDANIEL THOMPSONJAKE Dill Room: [address]#: [id number] Admission: 01/06/21 Attend Phys: Jose A Miramontes Discharge: Date of : 34 Date of Service: 01/07/21 1252 Report #: [id number] Pulmonic Valve The pulmonary valve is normal in structure. There is no pulmonic valvular regurgitation. Great Vessels The aortic root is normal in size. IVC is normal in size and collapses >50% with inspiration. Pericardium There is no pericardial effusion. <Conclusion> The left ventricle is normal size. There is normal left ventricular wall thickness. Left ventricular systolic function is normal. The left ventricular ejection fraction is within the normal range. LVEF is 50-55%. This study is not technically sufficient to allow evaluation of the LV diastolic function due to atrial fibrillation. The right ventricle is normal size. Left atrium is mildly dilated. The right atrium size is normal. Moderate aortic valve sclerosis. No aortic regurgitation is present. Moderate aortic stenosis. Moderate mitral annular calcification. Trace mitral regurgitation. No evidence of mitral valve stenosis. The tricuspid valve is normal in structure. Mild tricuspid regurgitation. Moderate pulmonary hypertension. IVC is normal in size and collapses >50% with inspiration. There is no pericardial effusion. There is normal LV segmental wall motion. <ELECTRONICALLY SIGNED> By: Mitch Gray MD, FACC 01/07/21 1252 1252 125 Mitch Gray MD, FACC /INF
[2021-01-07 16:56] VITALS: BP 167/64
[2021-01-07] MEDS ORDERED: VOLTAREN GEL 1100 G1 TOP (18:15)
[2021-01-07 19:45] VITALS: BP 156/56
[2021-01-08] VITALS: BP 141/62
[2021-01-08 04:00] VITALS: BP 146/55
[2021-01-08 05:03] LABS: HEMATOCRIT 25.1 % (37.0-47.0); HEMOGLOBIN 8.1 gm/dL (12.0-15.0); MCH 29.7 pg (26.0-34.0); MCHC 32.4 g/dL (28.0-37.0); MCV 91.7 fL (80.0-100.0); MPV 7.7 fl. (7.2-11.1); RBC 2.73 mil/uL (4.20-5.00); RDW-CV 14.9 % (10.5-14.5); WBC 9.1 thou/uL (4.0-11.0)
--- NOTE | 2021-01-08 05:46 | NUR ---
ASSUMED PT CARE AT 1915. PT IS A/OX4 WITH SOME CONFUSION DURING THE NIGHT AFTER BEING WOKE UP. PT WAS REORIENTED AFTER TALKING WITH THE PT. VSS. PT IS ON TELE MONITOR AND IS SR WITH PVC'S. PT HAS HX OF A-FIB, HTN, CHF, CAD, COPD, ASTHMA AND CURRENTLY A NON-PRODUCTIVE COUGH. PT IS NEGATIVE FOR COVID. PT CURRENTLY HAS UTI. PT IS ON 3L NC. PT USES 3L O2 AT HOME WELL. PT HAS AN INDWELLING LEWIS CATHETER WITH ACCURATE I/O'S. NO SKIN ISSUES NOTED. PT C/O PAIN IN FEET AND LEGS. PT REPORTS NEUROPATHY. MEDICATIONS ADMINISTERED PRESCRIBED. HOURLY ROUNDS COMPLETE CHARTED. FALL PRECAUTIONS IN PLACE FOR SAFETY. PT CURRENTLY RESTING IN BED. WILL CONTINUE TO MONITOR.
[2021-01-08 06:00] LABS: CALCIUM 9.4 mg/dL (8.5-10.1); CREATININE 1.8 mg/dL (0.6-1.3); POTASSIUM 4.5 mmol/L (3.5-5.1)
[2021-01-08 08:00] VITALS: BP 126/36
--- NOTE | 2021-01-08 08:00 | NUR ---
CHANGE OF SHIFT REPORT GIVEN PATIENT SRRN AT BEDSIDE, IN BED ASLEEP ASSUMED PATIENT CARE
[2021-01-08] MEDS ORDERED: TOPROL XL25 MG PO (10:42)
[2021-01-08] MEDS ORDERED: ELIQUIS5 MG PO (10:42)
[2021-01-08] MEDS ORDERED: LASIX 20 MG TAB20 MG PO (10:42)
[2021-01-08] MEDS ORDERED: PROTONIX40 M4 PO (10:46)
[2021-01-08] MEDS ORDERED: PREDNISONE 10 M10 M1 PO (11:17)
[2021-01-08] MEDS ORDERED: CEFDINIR300 MG PO (11:18)
[2021-01-08 11:41] VITALS: BP 145/87
--- NOTE | 2021-01-08 13:15 | NUR ---
discharge to home with h/h discharge information given, acknowledged, and papaerwork given iv and heart monitor removed personal belongings returned portable oxygen tank delivered from [employer] patient assisted out via wc to waitng car oxygen at 3lnc
--- NOTE | 2021-01-08 13:18 | NUR ---
CM INFORMED BY THE RN IN-CHARGE OF THE PT OF THE PHYSICIAN'S PLAN TO D/C THE PT HOME TODAY WITH HH. CM SPOKE TO THE PT TO DISCUSS THIS AND SHE REQUEST HH WITH [facility]. CM CALLED AND FAXED PT'S CLINICAL INFO TO [facility]. JAZMIN ALSO CONTACTED [facility] TO HAVE AN O2 TANK DELIVERED TO THE PT IN THE HOSPITAL FOR HER TO RETURN HOME WITH. [facility] DELIVERED PT AN O2 TANK TO THE BEDSIDE, AND INFORM THAT THEY SUPPLY THE PT'S NEBULIZER AND [facility] SUPPLIES THE PT'S OXYGEN. CM WILL REMAIN AVAILABLE TO ASSIST AND FOLLOW NEEDED. [facility] PHONE: [phone]
== END 2021-01-08 13:15 | disposition home health service (06) | DRG 291 ==
LOC: M.ERS 14:16 → M.TBA-ER 16:22 → M.2W 16:22
PROVIDERS: Emergency Medicine Emergency Medical Services; Registered Nurse; ADMIT Internal Medicine; ATTEND Internal Medicine
DX: I13.0 Hypertensive heart and chronic kidney disease with heart failure and stage 1 through stage 4 chronic kidney disease, or unspecified chronic kidney disease (principal); I50.33 Acute on chronic diastolic (congestive) heart failure; J96.01 Acute respiratory failure with hypoxia; N39.0 Urinary tract infection, site not specified; N18.4 Chronic kidney disease, stage 4 (severe); N17.9 Acute kidney failure, unspecified; J44.1 Chronic obstructive pulmonary disease with (acute) exacerbation; Z68.41 Body mass index [BMI] 40.0-44.9, adult; I48.0 Paroxysmal atrial fibrillation; D50.0 Iron deficiency anemia secondary to blood loss (chronic); E78.5 Hyperlipidemia, unspecified; I35.0 Nonrheumatic aortic (valve) stenosis; E66.9 Obesity, unspecified; Z20.822 Contact with and (suspected) exposure to COVID-19; Z85.41 Personal history of malignant neoplasm of cervix uteri; I25.2 Old myocardial infarction; Z95.5 Presence of coronary angioplasty implant and graft; Z90.710 Acquired absence of both cervix and uterus; Z79.899 Other long term (current) drug therapy; Z88.5 Allergy status to narcotic agent; Z88.2 Allergy status to sulfonamides

== ENCOUNTER 2021-12-13 12:03 | Inpatient (IN) | payer MEDICARE, BC ==
[~2021-12-13] VITALS: Ht 162.6 cm; Wt 96.6 kg
[~2021-12-13 12:03] MED LIST changes: +CEFDINIR300 MG PO; +ELIQUIS5 MG PO; +PREDNISONE 10 M10 M1 PO; +PROTONIX40 M4 PO; +VOLTAREN ARTHRI20 GM TOP
[2021-12-13 12:07] VITALS: BP 108/45
[2021-12-13 12:33] LABS: ABSOLUTE LYMPHOCYTES 0.6 thou/uL (0.8-5.3); HEMATOCRIT 21.7 % (37.0-47.0); MCH 30.5 pg (26.0-34.0); MCV 95.3 fL (80.0-100.0); MPV 7.5 fl. (7.2-11.1); NUCLEATED RBCS 0 /100WBC; PLATELET COUNT* 233 thou/uL (150-400); RBC 2.28 mil/uL (4.20-5.00); RDW-CV 16.2 % (10.5-14.5); WBC 8.2 thou/uL (4.0-11.0)
[2021-12-13 12:36] LABS: URINE BILIRUBIN NEGATIVE (Negative); URINE BLOOD NEGATIVE (Negative); URINE CLARITY CLEAR; URINE COLOR YELLOW; URINE GLUCOSE-RANDOM NEGATIVE (Negative); URINE KETONES NEGATIVE (Negative); URINE LEUKOCYTES-REFLEX 1+ (Negative); URINE PROTEIN NEGATIVE (Negative); URINE UROBILINOGEN 0.2 E.U./dl (0.2-1.0)
[2021-12-13 12:38] LABS: URINE NITRITE-REFLEX POSITIVE (Negative)
[2021-12-13 12:42] LABS: CALCIUM 8.6 mg/dL (8.5-10.1); CREATININE 2.2 mg/dL (0.6-1.3); POTASSIUM 4.4 mmol/L (3.5-5.1)
[2021-12-13 12:43] LABS: CASTS None Seen /LPF (None Seen); CRYSTALS None Seen /LPF (None Seen); SQUAMOUS 0-3 Few /LPF (0-3); URINE RBC 0-2 Rare /HPF (0-2); URINE WBC-REFLEX >25 Many /HPF (0-5)
[2021-12-13 12:58] LABS: ALBUMIN 3.2 g/dL (3.4-5.0); TOTAL BILIRUBIN 0.4 mg/dL (<0.1-1.0); TOTAL PROTEIN 7.1 g/dL (6.4-8.2)
[2021-12-13 13:01] LABS: ABSOLUTE NEUTROPHILS 5.6 thou/uL (1.6-8.1)
[2021-12-13 13:03] LABS: ABSOLUTE BASOPHILS 0.1 thou/uL (0.0-0.2); ABSOLUTE EOSINOPHILS 1.1 thou/uL (0.0-0.7); ABSOLUTE MONOCYTES 0.8 thou/uL (0.0-1.2); PLATELET ESTIMATE ADEQUATE
--- NOTE | 2021-12-13 13:13 | EKG ---
[place] [address] ELECTROCARDIOGRAM REPORT Name: ADIS EMMANUEL I Room: [facility]#: [id number] Admission: 12/13/21 Attend Phys: Discharge: Date of : 34 Date of Service: 12/13/21 1210 Report #: [id number] THIS REPORT FOR: //name// [facility] ED Test Date: 2021-12-13 Test Time: 12:10:50 Pat Name: ADIS EMMANUEL Department: Room: Gender: F Clearance Coordinator: XIOMARA : 1930 Requested By: Anibal Kerr Order Number: [id number] MD: Gonzalez Jarvis Measurements Intervals [place] Rate: 64 P: [place]: QRS: -44 QRSD: 134 T: 254 QT: 458 QTc: 473 Interpretive Statements Atrial fibrillation Left bundle branch block Compared to ECG 01/06/2021 14:23:39 Left bundle-branch block now present Ventricular premature complex(es) no longer present Left-axis deviation no longer present Electronically Signed On 12-13-2021 13:13:33 DESIZING MACHINE OFFBEARER by Gonzalez Jarvis [email or web address] <ELECTRONICALLY SIGNED> By: Gonzalez Jarvis MD, FACC 12/13/21 1313 1210 1210 Gonzalez Jarvis MD, [facility] /EPI
[2021-12-13 15:49] VITALS: BP 108/45
[2021-12-13 16:00] VITALS: BP 151/49
--- NOTE | 2021-12-13 16:22 | NUR ---
PATIENT TO ROOM 116 FROM ER PER CART. PLACED ON HOSPITAL BED AND WEIGHED. PATIENT PLACED ON DRYWALL METAL STUD WORKER. ATRIAL FIBRILLATION RATE 75 ON MONITOR. OXYGEN 3.5LITERS PER NC. PATIENT IS ON THIS AT HOME. PATIENT HAS BEEN FALLING A LOT RECENTLY. SHE FELL THIS AM. SHE SAID SHE HIT HER HEAD RECENTLY. DOES NOT REMEMBER IF SHE LOST CONSCIOUSNESS. IV SITE RIGHT AC. GIVE PATIENT SIPS OF WATER. DR FIERRO IN TO SEE PATIENT.
--- NOTE | 2021-12-13 19:24 | NUR ---
patient resting at present. patient came from er today. patient had good urinary output post lasix.
[2021-12-13 22:45] VITALS: BP 151/48
[2021-12-14 04:00] VITALS: BP 99/55
[2021-12-14 04:53] LABS: ABSOLUTE MONOCYTES 0.1 thou/uL (0.0-1.2); ABSOLUTE NEUTROPHILS 4.6 thou/uL (1.6-8.1); BASOPHILS 0.1 %; EOSINOPHILS 0.1 %; HEMATOCRIT 21.8 % (37.0-47.0); HEMOGLOBIN 7.1 gm/dL (12.0-15.0); LYMPHOCYTES 17.9 %; MCHC 32.6 g/dL (28.0-37.0); MCV 94.9 fL (80.0-100.0); MONOCYTES 1.3 %; MPV 7.6 fl. (7.2-11.1); NUCLEATED RBCS 0 /100WBC; PLATELET COUNT* 232 thou/uL (150-400); POLYS 80.6 %; RBC 2.29 mil/uL (4.20-5.00); RDW-CV 15.9 % (10.5-14.5); WBC 5.7 thou/uL (4.0-11.0)
[2021-12-14 05:07] LABS: CALCIUM 8.4 mg/dL (8.5-10.1); CREATININE 2.1 mg/dL (0.6-1.3); POTASSIUM 4.5 mmol/L (3.5-5.1)
--- NOTE | 2021-12-14 09:12 | CON ---
[address] [address] CONSULTATION Name: ADIS EMMANUEL I Room: [address] IN M.R.#: [id number] Admission: 12/13/21 Attend Phys: Mary Ortiz Discharge: Date of : 34 Report #: [id number] THIS REPORT FOR: cc: Kenia Alarcon Maggie M. DO Liston, Michael J. MD [facility] ~ cc: Kenia Alarcon DO DATE OF CONSULTATION: 12/13/2021 CARDIOLOGY CONSULTATION INDICATION: Elevated troponin and congestive heart failure. HISTORY OF PRESENT ILLNESS: The patient is a very pleasant 89-year-old white female with a history of COPD, CHF and chronic kidney disease, who presents to the Emergency Room after having multiple falls at home. She reports falling last week on the ice and think she hit her head. She had to crawl into the house. She has been dizzy since. On arrival to the Emergency Room, she is noted to be mildly hypoxic with a chest x-ray suggestive of acute heart failure. The patient denies any chest pain. In this setting, her troponin was minimally elevated at slightly above 100. PAST MEDICAL HISTORY: 1. Hypertension. 2. Paroxysmal atrial fibrillation. 3. Chronic diastolic heart failure. 4. Chronic obstructive pulmonary disease, oxygen requiring. 5. History of uterine cancer with hysterectomy. 6. Hypothyroidism. 7. Hypercoagulable due to atrial fibrillation. 8. Chronic anticoagulation. ALLERGIES: MORPHINE. HOME MEDICATIONS: Eliquis 2.5 mg b.i.d., atorvastatin 20 mg at bedtime, Pulmicort inhaler b.i.d., Omnicef 300 mg b.i.d., Voltaren arthritis gel topically q.i.d., iron sulfate 142 mg b.i.d., furosemide 20 mg b.i.d., Synthroid 0.112 mg daily, Linzess 290 mg daily, lorazepam 1 mg b.i.d. p.r.n., metoprolol succinate 25 mg daily, Nitrostat sublingual p.r.n., Protonix 40 mg daily, prednisone 10 mg daily. FAMILY HISTORY: Positive for coronary artery disease. SOCIAL HISTORY: The patient is . [place] [address] CONSULTATION Name: ADIS EMMANUEL I Room: [address]#: [id number] Admission: 12/13/21 Attend Phys: Mary Ortiz Discharge: Date of : 34 Report #: [id number] She quit smoking many years ago. There is no history of alcohol abuse. REVIEW OF SYSTEMS: Positive for dizziness, unsteadiness, unsteady gait, shortness of breath without orthopnea. No chest pain. Otherwise, 14-point review of systems unremarkable. PHYSICAL EXAMINATION: VITAL SIGNS: Blood pressure 108/45, pulse is in the 70s and irregular. GENERAL: This is a pleasant elderly female who is not in distress. HEENT: Head is normocephalic, atraumatic. Extraocular muscles intact. Mucous membranes are moist. NECK: Shows jugular venous distention without carotid bruit. CHEST: Reveals diminished breath sounds. CARDIAC: Reveals an irregularly irregular rhythm with a grade 3/6 systolic ejection murmur. ABDOMEN: Reveals normal bowel sounds. The abdomen is soft, nontender. EXTREMITIES: Shows no edema. Peripheral pulses 2+ and easily palpable. LABORATORY DATA: Reviewed. Sodium 142, potassium 4.4, chloride 104, bicarb 31, BUN 50, creatinine 2.2, serum glucose 115. LFTs are within normal limits. High sensitivity troponin 104. NT-proBNP 7107. White blood cell count 8.2, hemoglobin 7.0, platelet count 233,000. Chest x-ray shows cardiomegaly with vascular congestion. CT of the head shows cerebral atrophy and small vessel ischemic changes. IMPRESSION AND RECOMMENDATIONS: 1. Acute on chronic diastolic heart failure. The patient has been given IV Lasix in the Emergency Room. She is diuresing adequately at present. She appears to be breathing fairly comfortably at this time. We will continue IV Lasix temporarily here in the hospital and transition back to oral diuretics prior to discharge. 2. Chronic atrial fibrillation. Rate is adequately controlled. She is chronically anticoagulated and having no bleeding problems. 3. Hypertension by history. Blood pressure appears stable at this time. We will adjust medications as needed. 4. Hyperlipidemia. Continue statin agent at current dose. 5. Type 2 diabetes mellitus. Per hospitalist. 6. Chronic obstructive pulmonary disease, oxygen requiring. Appears stable at this time. 7. Anemia. The patient is on iron supplement. Follow up CBC in [facility] [address] [place] [address] CONSULTATION Name: ADIS EMMANUEL I Room: M.116-P ADM IN M.R.#: [id number] Admission: 12/13/21 Attend Phys: Mary Ortiz Discharge: Date of : 34 Report #: [id number] 8. Chronic renal insufficiency. Appears to be close to her baseline at this time. <ELECTRONICALLY SIGNED> By: Gonzalez Jarvis MD, FACC 12/14/21911 1519 Aris Jarvis MD, FACC /nt
[2021-12-14 12:00] VITALS: BP 161/66
--- NOTE | 2021-12-14 13:03 | 2DMMODE ---
[place] [address] 2 D/M-MODE ECHOCARDIOGRAM Name: ADIS EMMANUEL I Room: [address] IN .#: [id number] Admission: 12/13/21 Attend Phys: Jose A Miramontes Discharge: Date of : 34 Date of Service: 12/14/21 1303 Report #: [id number] THIS REPORT FOR: cc: Kenia Alarcon Maggie M. DO Blick, David R. MD [facility] ~ APPROVED REPORT Study performed: 12/14/2021 10:51:10 EXAM: Comprehensive 2D, Doppler, and color-flow Echocardiogram Patient Location: In-Patient Room #: [facility] Status: routine BSA: 2.01 HR: 76 bpm BP: 99/55 mmHg Rhythm: NSR Other Information Study Quality: Good Indications Dyspnea 2D Dimensions IVSd: 14.78 (7-11mm) LVOT Diam: 19.81 (18-24mm) LVDd: 50.84 mm PWd: 11.64 (7-11mm) Ascending Ao: 32.49 (22-36mm) LVDs: 27.45 (25-40mm) Aortic Root: 28.17 mm Volumes Left Atrial Volume (Systole) LA ESV Index: 45.70 mL/m2 Aortic Valve AoV Peak Ángel.: 3.52 m/s AO Peak Gr.: 49.56 mmHg LVOT Max P.79 mmHg AO Mean Gr.: 30.46 mmHg LVOT Mean P.89 mmHg LVOT Max V: 0.97 m/s AO V2 VTI: 90.01 cm LVOT Mean V: 0.63 m/s JIMBO (VTI): 0.79 cm2 LVOT V1 VTI: 23.20 [place] [address] 2 D/M-MODE ECHOCARDIOGRAM Name: ADIS EMMANUEL I Room: [address] IN [facility].#: [id number] Admission: 12/13/21 Attend Phys: Jose A Miramontes Discharge: Date of : 34 Date of Service: 12/14/21 1303 Report #: [id number] Mitral Valve MV Mean Gr.: 4.57 mmHg TDI Medial E' Ángel.: 0.10 m/s Lateral E' Ángel.: 0.12 m/s Pulmonary Valve PV Peak Ángel.: 1.32 m/s PV Peak Gr.: 7.00 mmHg Tricuspid Valve RAP Estimate: 5.00 mmHg TR Peak Gr.: 44.21 mmHg RVSP: 49.00 mmHg PA Pressure: 49.00 mmHg Left Ventricle The left ventricle is normal size. There is normal LV segmental wall motion. Mild concentric left ventricular hypertrophy. Left ventricular systolic function is normal. The left ventricular ejection fraction is within the normal range. LVEF is 55-60%. This study is not technically sufficient to allow evaluation of the LV diastolic function due to atrial fibrillation. Right Ventricle Right ventricle is dilated. The right ventricular systolic function is normal. Atria Left atrium is moderately dilated. Right atrium is dilated. Aortic Valve Aortic valve is calcified. Trace aortic regurgitation. Mpderately Severe aortic stenosis. Mitral Valve There is mitral annular calcification. The mitral valve is normal in structure. Mild mitral regurgitation. No evidence of mitral valve stenosis. Tricuspid Valve The tricuspid valve is normal in structure. Mild tricuspid regurgitation. estimated pa pressure 45 mm Hg Pulmonic Valve The pulmonary valve is normal in structure. There is no pulmonic [place]vular [place] [address] 2 D/M-MODE ECHOCARDIOGRAM Name: ADIS EMMANUEL I Room: [address]#: [id number] Admission: 12/13/21 Attend Phys: Jose A Miramontes Discharge: Date of : 34 Date of Service: 12/14/21 1303 Report #: [id number] Great Vessels The aortic root is normal in size. IVC is normal in size and collapses >50% with inspiration. Pericardium There is no pericardial effusion. <Conclusion> Mild concentric left ventricular hypertrophy. LVEF is 55-60%. Left atrium is moderately dilated. Mpderately Severe aortic stenosis. Mild mitral regurgitation. Mild tricuspid regurgitation. estimated pa pressure 45 mm Hg <ELECTRONICALLY SIGNED> By: Mc Savage MD, FACC 12/14/21 1303 02 02 Mc Savage MD, FACC /INF
[2021-12-14] MEDS ORDERED: HYDRALAZINE 5050 MG PO (13:23)
[2021-12-14] MEDS ORDERED: XARELTO2.5 MG PO (13:24)
--- NOTE | 2021-12-14 18:19 | NUR ---
CM ATTEMPTED TO CONTACT PT VIA ROOM AND ATTEMPTED TO CONTACT PT SPOUSE TO COMPLETE ASSESSMENT. CM WAS NOT ABLE TO CONTACT EITHER LIBERTARIAN. CM TO ATTEMPT AGAIN. PT NOT MED CLEAR AND ON 4L O2. CM TO FOLLOW.
--- NOTE | 2021-12-14 18:56 | NUR ---
transfer from [facility] telephone report given patient to room via bed oriented to rm and call light
[2021-12-14 20:00] VITALS: BP 139/55
[2021-12-15] VITALS: BP 142/55
[2021-12-15 04:00] VITALS: BP 135/60
[2021-12-15 04:37] LABS: HEMATOCRIT 22.6 % (37.0-47.0); HEMOGLOBIN 7.4 gm/dL (12.0-15.0); MCH 30.9 pg (26.0-34.0); MCHC 32.7 g/dL (28.0-37.0); MCV 94.5 fL (80.0-100.0); MPV 7.7 fl. (7.2-11.1); NUCLEATED RBCS 0 /100WBC; PLATELET COUNT* 243 thou/uL (150-400); RBC 2.39 mil/uL (4.20-5.00); RDW-CV 15.7 % (10.5-14.5); WBC 8.6 thou/uL (4.0-11.0)
[2021-12-15 05:36] LABS: CALCIUM 8.7 mg/dL (8.5-10.1); POTASSIUM 4.5 mmol/L (3.5-5.1)
--- NOTE | 2021-12-15 05:45 | NUR ---
Oriented x 3-4 but is hard of hearing and anxious. She might have some confusion because she does question about every med and says that she doesn't take that. I don't know what her baseline is. She had a large amount of urine output per richards it was pablo-orangish colored. She has remained afib on the monitor this shift. She has O2 at 4L n/c, lungs are diminished bilat. She states that she hasn't slept and that shehas been in pain all night but she only has tylenol for pain and only requested it at bedtime. I did give her tylenol this am.
[2021-12-15 07:26] LABS: ABSOLUTE LYMPHOCYTES 1.5 thou/uL (0.8-5.3); ABSOLUTE MONOCYTES 0.2 thou/uL (0.0-1.2); PLATELET ESTIMATE ADEQUATE
[2021-12-15 07:27] LABS: HYPOCHROMASIA 1+
[2021-12-15 08:00] VITALS: BP 165/61
[2021-12-15 16:00] VITALS: BP 135/48
[2021-12-15 16:15] LABS: URINE BILIRUBIN NEGATIVE (Negative); URINE BLOOD TRACE (Negative); URINE CLARITY CLEAR; URINE COLOR YELLOW; URINE GLUCOSE-RANDOM TRACE (Negative); URINE KETONES NEGATIVE (Negative); URINE LEUKOCYTES NEGATIVE (Negative); URINE NITRITE NEGATIVE (Negative); URINE PROTEIN NEGATIVE (Negative); URINE SPECIFIC GRAVITY 1.015 (1.005-1.030); URINE UROBILINOGEN 0.2 E.U./dl (0.2-1.0)
[2021-12-15 20:00] VITALS: BP 174/59
[2021-12-16] VITALS: BP 125/62
[2021-12-16 04:00] VITALS: BP 159/58
--- NOTE | 2021-12-16 07:57 | NUR ---
Oriented x 3 but forgetful. She did ask doctor for ativan which was scheduled for HS last night. She asked if she had it for last night and I said yes and she also asked for the melatonin. She has been afib on the monitor which is what it's been. Vitals have been stable. She did sleep all night. This am she woke up confused just before 0700. She is upset saying she doesn't know where she is and wanting to pull out her catheter. She just has been arguing about where she is and her meds. Now she thinks that she was overdosed. I did say that the ativan was the only thing different she took. She is yelling out frequently but has stopped trying to pull on her catheter.
[2021-12-16 08:08] LABS: ABSOLUTE LYMPHOCYTES 0.6 thou/uL (0.8-5.3); ABSOLUTE MONOCYTES 0.4 thou/uL (0.0-1.2); ABSOLUTE NEUTROPHILS 8.2 thou/uL (1.6-8.1); HEMATOCRIT 23.6 % (37.0-47.0); HEMOGLOBIN 7.4 gm/dL (12.0-15.0); LYMPHOCYTES 6.2 %; MCH 29.9 pg (26.0-34.0); MCHC 31.5 g/dL (28.0-37.0); MCV 94.9 fL (80.0-100.0); MONOCYTES 4.6 %; MPV 7.4 fl. (7.2-11.1); NUCLEATED RBCS 0 /100WBC; PLATELET COUNT* 251 thou/uL (150-400); POLYS 89.2 %; RBC 2.49 mil/uL (4.20-5.00); WBC 9.2 thou/uL (4.0-11.0)
[2021-12-16 08:12] LABS: CALCIUM 8.7 mg/dL (8.5-10.1); CREATININE 1.9 mg/dL (0.6-1.3); POTASSIUM 4.6 mmol/L (3.5-5.1)
--- NOTE | 2021-12-16 08:17 | NUR ---
CM ASSESSMENT: PT A&O. PT INFORMS THAT PRIOR TO ADMIT SHE WAS ACTIVE AND INDEPENDENT WITH ADL'S. PT RESIDES AT HOME WITH SPOUSE. PT USES WALKER FOR MOBILITY. PT USES HOME O2, AND INFORMS THAT SHE BELIEVE THAT IS WAS ARRRNAGED THROUGH [employer]. CM TO ATTMEPT TO CONFIRM THIS. PT HAS PAST HX OF HH MANY YEARS AGO. PT HAS PAST HX OF SNF AT [facility]. PT ALSO INFORMS THAT HER GRANDDAUGHTER ASSIST WITH [facility] AND ORDERS THEM FOR HER AND HAS THEM DELIVERED TO HER HOME SINCE THE BEGINING OF JUAN. PT INFORMS OF PLAN TO RETURN HOME AT D/C AND SHE IS OPEN TO HH. PT/OT EVALS NEEDED TO ASSIST WITH CM D/C PLANNING, PT IS VERY WINDED AND WEAK WITH ACTIVITY/MOBILITY PER PT. CM WILL REMAIN AVAILABLE TO ASSIST AND FOLLOW NEEDED.
[2021-12-16] MEDS ORDERED: DEMADEX20 MG PO (09:09)
[2021-12-16 12:07] VITALS: BP 151/51
--- NOTE | 2021-12-16 16:04 | NUR ---
The patient want her daughter to schedule her FUA with Dr. Jiménez, her director of community center in [place]. Her daughter called Dr. Jiménez's office and was instructed that they would have to call her back about a FUA.
[2021-12-16] MEDS ORDERED: CIPRO500 M1 PO (16:38)
[2021-12-16] MEDS ORDERED: SPIRONOLACTONE25 MG PO (16:39)
--- NOTE | 2021-12-16 16:44 | NUR ---
PLAN OF CARE: PLAN FOR THE PT TO POSSIBLY D/C HOME TODAY. CM SPOKE TO THE PT TO DISCUSS THIS AND THE NEED FOR HH, AND PT IN AGREEMENT. PT HAS NO PREFERENCE OF HH, AND ACCEPTS HH WITH [facility]. CM FAXED REFERRAL. CM ALSO RECIEVED A CALL FROM JENNIFER WITH [facility] REQUESTING ORDERS FOR HOSPICE FOR THE PT. CM SPOKE TO PT TO DISCUSS THIS AND PT INFORMS 'NOT RIGHT NOW'. D/C ORDERS PENDING AT THIS TIME. CM WILL REMAIN AVAILABLE TO ASSIST AND FOLLOW NEEDED. [facility] PHONE: [phone] FAX: [phone]
[2021-12-16 17:02] VITALS: BP 151/51
--- NOTE | 2021-12-16 19:53 | NUR ---
patient verbalized understanding of d/c papers, prescriptions, scripts were sent to wrong pharmacy so I called to have them sent to the correct one. IV d/c'd, panel monitor taken off, richards cath d/c and daughter picking patient up. Patient taken out by wheelchair with all belongings and O2.
== END 2021-12-16 18:45 | disposition home health service (06) | DRG 177 ==
LOC: M.ERS 12:03 → M.TBA-ER 13:18 → M.2W 13:18 → M.ORTHSURG 13:18 → M.2W 12-14 19:03
PROVIDERS: Family Medicine; ADMIT Internal Medicine; ATTEND Internal Medicine
DX: J69.0 Pneumonitis due to inhalation of food and vomit (principal); I50.33 Acute on chronic diastolic (congestive) heart failure; J44.1 Chronic obstructive pulmonary disease with (acute) exacerbation; N18.4 Chronic kidney disease, stage 4 (severe); N17.9 Acute kidney failure, unspecified; N39.0 Urinary tract infection, site not specified; I13.2 Hypertensive heart and chronic kidney disease with heart failure and with stage 5 chronic kidney disease, or end stage renal disease; J44.0 Chronic obstructive pulmonary disease with (acute) lower respiratory infection; F03.90 Unspecified dementia, unspecified severity, without behavioral disturbance, psychotic disturbance, mood disturbance, and anxiety; K44.9 Diaphragmatic hernia without obstruction or gangrene; I48.0 Paroxysmal atrial fibrillation; E03.9 Hypothyroidism, unspecified; E78.5 Hyperlipidemia, unspecified; J15.9 Unspecified bacterial pneumonia; D64.9 Anemia, unspecified; I35.0 Nonrheumatic aortic (valve) stenosis; R77.8 Other specified abnormalities of plasma proteins; G62.9 Polyneuropathy, unspecified; Z99.81 Dependence on supplemental oxygen; Z79.01 Long term (current) use of anticoagulants; Z85.820 Personal history of malignant melanoma of skin; Z85.41 Personal history of malignant neoplasm of cervix uteri; I25.2 Old myocardial infarction; Z95.5 Presence of coronary angioplasty implant and graft; Z90.710 Acquired absence of both cervix and uterus; Z88.5 Allergy status to narcotic agent; Z88.2 Allergy status to sulfonamides; Z79.899 Other long term (current) drug therapy; Z82.49 Family history of ischemic heart disease and other diseases of the circulatory system; Z87.891 Personal history of nicotine dependence